=== PATIENT | male | born 1975 | race African-American/Black ===

== ENCOUNTER 2025-03-05 07:51 | Emergency (ER) | payer MEDICAID ==
[~2025-03-05] VITALS: Ht 180.3 cm; Wt 124.0 kg
[2025-03-05 07:59] VITALS: O2SAT 100
[2025-03-05] MEDS ORDERED: DIPHENHYDRAMINE 50MG CAPSULE PO ONE (08:15)
[2025-03-05] MEDS ORDERED: PREDNISONE 20MG TABLET PO ONE (08:15)
[2025-03-05] MEDS: FAMOTIDINE 20MG TABLET PO ONE (08:15)
[2025-03-05] MEDS: DIPHENHYDRAMINE 25MG CAPSULE PO NR (08:30)
[2025-03-05] MEDS: METHYLPREDNISOLONE SOD SUCC 125MG/2ML (ACT-O-VIAL) IM ONE (08:46)
[2025-03-05] MEDS ORDERED: METH4TAB95 MT (09:40)
[2025-03-05] MEDS ORDERED: FAMO-135 MT (09:40)
[2025-03-05 09:49] VITALS: BP 128/86; PULSE 98; RESP 16; TEMP 36.6; O2SAT 100
== END 2025-03-05 10:36 | disposition home or self-care (01) ==
LOC: ER 07:51
DX: L50.0 Allergic urticaria (principal); J45.909 Unspecified asthma, uncomplicated; Z79.899 Other long term (current) drug therapy
CPT/HCPCS: 99283; 96372; J2919; Q0163; J7512

== ENCOUNTER 2025-03-12 14:12 | Emergency (ER) | payer MEDICAID ==
[~2025-03-12] VITALS: Ht 180.3 cm; Wt 124.7 kg
[~2025-03-12 14:12] MED LIST: FAMO-135 MT; METH4TAB95 MT
[2025-03-12 14:13] VITALS: O2SAT 99
[2025-03-12] MEDS: DIPHENHYDRAMINE 50MG/ML VIAL IV ONE (15:40)
[2025-03-12] MEDS: METHYLPREDNISOLONE SOD SUCC 125MG/2ML (ACT-O-VIAL) IV ONE (15:40)
[2025-03-12] MEDS: FAMOTIDINE 20MG/2ML VIAL IV ONE (15:41)
[2025-03-12] MEDS ORDERED: DIPH28.34 TP (15:55)
[2025-03-12] MEDS ORDERED: DIPH25TA62 MT (15:55)
[2025-03-12 16:34] VITALS: BP 138/88; PULSE 89; RESP 18; TEMP 36.9; O2SAT 99
== END 2025-03-12 16:37 | disposition home or self-care (01) ==
LOC: ER 14:12
DX: L50.9 Urticaria, unspecified (principal); J45.909 Unspecified asthma, uncomplicated; Z79.899 Other long term (current) drug therapy
CPT/HCPCS: 99284; 96374; 96375; J2919; J1200; J3490

== ENCOUNTER 2025-03-15 19:39 | Emergency (ER) | payer MEDICAID ==
[~2025-03-15] VITALS: Ht 180.3 cm; Wt 124.0 kg
[~2025-03-15 19:39] MED LIST changes: +DIPH25TA62 MT; +DIPH28.34 TP
[2025-03-15 19:41] VITALS: O2SAT 100
[2025-03-15 20:17] VITALS: BP 163/85; PULSE 100; RESP 16; TEMP 36.9; O2SAT 100
[2025-03-15] MEDS ORDERED: EPIN0.3P3 IM (21:13)
[2025-03-15] MEDS ORDERED: DIPHENHYDRAMINE 50MG CAPSULE PO ONE (21:15)
[2025-03-15] MEDS ORDERED: B50 MT (21:16)
[2025-03-15] MEDS ORDERED: P20 MT (21:17)
[2025-03-15] MEDS: DEXAMETHASONE 10 MG/ML VIAL IM ONE (21:31)
[2025-03-15] MEDS: FAMOTIDINE 20MG TABLET PO ONE (21:31)
[2025-03-15] MEDS: DIPHENHYDRAMINE 25MG CAPSULE PO NR (21:31)
== END 2025-03-15 21:40 | disposition home or self-care (01) ==
LOC: ER 19:39
DX: T78.40XA Allergy, unspecified, initial encounter (principal); J45.909 Unspecified asthma, uncomplicated; Z79.52 Long term (current) use of systemic steroids; Z79.899 Other long term (current) drug therapy; Z91.013 Allergy to seafood; X58.XXXA Exposure to other specified factors, initial encounter
CPT/HCPCS: 96372; 99283; Q0163; J1100; Z7610 ×2